=== PATIENT | male | born 1995 | race Caucasian/White ===

== ENCOUNTER 2020-12-09 09:59 | Emergency (ER) | payer BC ==
[~2020-12-09] VITALS: Ht 172.7 cm; Wt 68.0 kg
[2020-12-09 10:04] VITALS: BP 133/86
--- NOTE | 2020-12-09 10:09 | NUR ---
PT AMBULATED TO BED 7, STEADY GAIT.
--- NOTE | 2020-12-09 10:20 | NUR ---
DR FRIEDMAN AT BEDSIDE EXAMINING PT
--- NOTE | 2020-12-09 10:30 | NUR ---
25 Y/M PRESENTS TO ED S/P LACERATION TO R HAND 15 MINS AGO AFFECTING DIGIT 3 AND 4 WHILE HE WAS CUTTING WOOD WITH TABLE SAW. BLEEDING CONTROLLED. PT REPORTS 6/10 PRESSURE PAIN. UNSURE OF LAST TDAP PMH- DENEIS NKDA RX- DENIES
--- NOTE | 2020-12-09 10:35 | NUR ---
LAC TRAY SET UP AT BED SIDE ERMD NOTIFIED
[2020-12-09] MEDS: LIDOCAINE MPF 1% 10 MG/ML VIAL INJ ONE (10:46)
--- NOTE | 2020-12-09 10:47 | NUR ---
DR FRIEDMAN AT BEDSIDE FOR PROCEDURE
--- NOTE | 2020-12-09 10:48 | NUR ---
Patient has a 3 cm laceration to R HAND 3RD AND [address]TH DIGITS. Dr. FRIEDMAN applied sutures using sterile technique. Edges well approximated. Site cleansed with WELL. No bleeding noted. Pt tolerated well.
[2020-12-09] MEDS ORDERED: NAPR-1704 PO (11:00)
[2020-12-09] MEDS ORDERED: BACITRACIN OINT 500 UNITS/GM PKT TP ONE ×2 (11:00→11:05)
[2020-12-09] MEDS: BACITRACIN OINT 500 UNITS/GM PKT TP ONE (11:05)
--- NOTE | 2020-12-09 11:09 | NUR ---
APPLIED BACITRACIN TO PT LACS, PT LACS DRESSED WITH NON-ADHERENT AND WRAPPED WITH 1" GUAZE ROLL. RN NOTIFIED
[2020-12-09 11:13] VITALS: BP 133/86
== END 2020-12-09 11:13 | disposition home or self-care (01) ==
LOC: MED 09:59
DX: S61.210A Laceration without foreign body of right index finger without damage to nail, initial encounter (principal); S61.212A Laceration without foreign body of right middle finger without damage to nail, initial encounter; R03.0 Elevated blood-pressure reading, without diagnosis of hypertension; Z79.899 Other long term (current) drug therapy; W27.0XXA Contact with workbench tool, initial encounter; Y93.89 Activity, other specified; Y92.098 Other place in other non-institutional residence as the place of occurrence of the external cause; Y99.8 Other external cause status
CPT/HCPCS: 12002; 90471; 90715; 99284; J2001; 99283

== ENCOUNTER 2020-12-11 15:31 | Emergency (ER) | payer BC ==
[~2020-12-11] VITALS: Ht 177.8 cm; Wt 70.3 kg
[~2020-12-11 15:31] MED LIST: NAPR-1704 PO
[2020-12-11 15:35] VITALS: BP 123/79
[2020-12-11 15:55] VITALS: BP 123/79
== END 2020-12-11 15:55 | disposition home or self-care (01) ==
LOC: MED 15:31
DX: S61.210D Laceration without foreign body of right index finger without damage to nail, subsequent encounter (principal); S61.212D Laceration without foreign body of right middle finger without damage to nail, subsequent encounter; Z48.00 Encounter for change or removal of nonsurgical wound dressing; X58.XXXD Exposure to other specified factors, subsequent encounter
CPT/HCPCS: 99281

== ENCOUNTER 2020-12-20 12:04 | Emergency (ER) | payer BC, MEDICAID ==
[~2020-12-20] VITALS: Ht 172.7 cm; Wt 70.8 kg
[2020-12-20 12:09] VITALS: BP 144/84
[2020-12-20 12:37] VITALS: BP 144/84
== END 2020-12-20 12:52 | disposition home or self-care (01) ==
LOC: MED 12:04
DX: S61.219D Laceration without foreign body of unspecified finger without damage to nail, subsequent encounter (principal); Z79.899 Other long term (current) drug therapy; X58.XXXD Exposure to other specified factors, subsequent encounter
CPT/HCPCS: 99281